=== PATIENT | male | born 1960 | race Caucasian/White ===

== ENCOUNTER 2021-09-07 15:40 | Emergency (ER) | payer OTHER, SELFPAY ==
--- NOTE | 2021-09-07 | ECG_ITS ---
Test Reason : cp Blood Pressure : / mmHG Vent. Rate : 073 BPM Atrial Rate : 073 BPM P-R Int : 188 ms QRS Dur : 096 ms QT Int : 374 ms P-R-T Axes : 062 -30 044 degrees QTc Int : 412 ms Normal sinus rhythm Left axis deviation Inferior infarct , age undetermined Abnormal ECG No previous ECGs available Referred By: Hayes Young Electronically Signed By:ELIZA FALL
[2021-09-07 16:20] VITALS: BP 145/93; PULSE 70; RESP 18; TEMP 36.7; O2SAT 98; BMI 29.8
--- NOTE | 2021-09-07 18:27 | ED.GENADULT ---
HPI - General Adult General Chief complaint: General Medical Stated complaint: high blood pressure Time Seen by Provider: 09/07/21 18:27 Source: patient Mode of arrival: ambulatory Limitations: no limitations History of Present Illness HPI narrative: Patient history of hypertension on lisinopril 10 mg daily for last few years for last 1 week patient noticed blood pressure been on the higher side seen his PCP 3 days ago who advised to follow-up and continue same medication now patient complaining of left shoulder pain for last few days which increases on movement of the left shoulder no chest pain or shortness of breath no stress no caffeine intake patient does take some ibuprofen off and on for left shoulder pain patient had detail lab work done on 07/25 with a creatinine of 1.4 which has been stable Related Data Previous Rx's Medication Instructions Recorded hydrochlorothiazide 25 mg tablet 25 mg PO QAM #30 tab 09/07/21 Allergies Allergy/AdvReac Type Severity Reaction Status Date / Time No Known Allergies Allergy Verified 09/07/21 16:19 Review of Systems Review of Systems: Yes all other systems are reviewed and are negative [facility] Social History Social History Advance Directives: No Advance Directives Information Provided: No Physical Exam ED Vital Signs: Vital Signs - 24 hr 09/07/21 16:20 Temperature 98.0 F Pulse Rate 70 Respiratory Rate 18 Blood Pressure 145/93 H Pulse Oximetry 98 BMI result Body Mass Index 29.8 Appearance: Alert. Oriented X3. No acute distress. Eyes: No pallor or icterus ENT: Pharynx normal. Oral Mucosa moist Neck: Normal inspection. Neck supple. CVS: Normal heart rate and rhythm. Pulses normal. Respiratory: No respiratory distress. Equal air entry bilateral, no wheezing/rales/rhonchi Abdomen: Soft and nontender. Bowel sounds are present, no mass palpable, no CVA tenderness Skin: Skin warm and dry. Normal skin color. Normal skin turgor. Extremities: No lower extremity edema. No calf tenderness Neuro: Oriented X 3. No motor deficit. No sensory deficit.No cerebellar signs , cranial nerves II-XII intact Medical Decision Making MDM Narrative Medical decision making narrative: Patient with slightly elevated blood pressure advised to add hydrochlorothiazide along with lisinopril and check the blood pressure and follow with PCP ECG Data Attestation: I personally reviewed and interpreted this ECG as follows: Interpretation: Normal sinus rhythm heart rate 73 beats per minute left axis deviation no acute ST T wave changes no acute ischemia Discharge Plan Discharge Clinical Impression: Hypertension Patient Disposition: Home, Self-Care Instructions: Chronic Hypertension (ED) Additional Instructions: Continue lisinopril 10 mg daily Take 5 mg of lisinopril extra dose tonight Start taking hydrochlorothiazide 25 mg daily in the morning along with lisinopril 10 mg daily Check blood pressure twice daily before taking the medicine and before going to bed If after 2 days blood pressure is still higher than 140/90 increase the dose of lisinopril to 20 mg and continue to take hydrochlorothiazide Prescriptions: New hydrochlorothiazide 25 mg tablet 25 mg PO QAM Qty: 30 0RF
== END 2021-09-07 19:37 | disposition home or self-care (01) ==
PROVIDERS: Emergency Provider Internal Medicine; PCP Family Medicine
DX: I10 Essential (primary) hypertension (principal); Z79.899 Other long term (current) drug therapy
CPT/HCPCS: 93005; 99283